=== PATIENT | male | born 1960 | race Caucasian/White ===

== ENCOUNTER 2018-08-18 12:33 | Emergency (ER) | payer MEDICARE, MEDICAID ==
[~2018-08-18] VITALS: Ht 175.3 cm; Wt 63.6 kg
[~2018-08-18 12:33] MED LIST: RISP2TAB12
[2018-08-18 13:06] LABS: BASO # 0.1 10^3/uL (0.0-0.2); BASO % 0.5 % (0.0-1.0); EOS # 0.1 10^3/uL (0.0-0.50); EOS % 0.8 % (0.0-3.0); HEMATOCRIT 41.2 % (42.0-52.0); HEMOGLOBIN 13.8 g/dl (13.5-17.5); LYMPH # 2.4 10^3/uL (1.5-4.5); LYMPH % 24.4 % (24.0-44.0); MEAN CORPUSCULAR HEMOGLOBIN 30.5 pg (27.0-33.0); MEAN CORPUSCULAR HGB CONC 33.5 g/dl (32.0-36.5); MEAN CORPUSCULAR VOLUME 90.9 fl (80.0-96.0); MONO # 0.7 10^3/uL (0.0-0.8); MONO % 7.1 % (0.0-5.0); NEUTROPHILS # 6.6 10^3/uL (1.8-7.7); NEUTROPHILS % 66.8 % (36.0-66.0); PLATELET COUNT, AUTOMATED 327 10^3/uL (150-450); RED BLOOD COUNT 4.53 10^6/uL (4.30-6.10); WHITE BLOOD COUNT 9.8 10^3/uL (4.0-10.0)
[2018-08-18 13:16] LABS: INR 0.95; PROTHROMBIN TIME 12.8 SECONDS (12.1-14.4)
[2018-08-18 13:43] LABS: ALBUMIN 4.3 GM/DL (3.2-5.2); ALT/SGPT 22 U/L (12-78); BILIRUBIN,DIRECT 0.1 MG/DL (0.0-0.2); BILIRUBIN,TOTAL 0.6 MG/DL (0.2-1.0); BLOOD UREA NITROGEN 11 MG/DL (7-18); CALCIUM LEVEL 9.1 MG/DL (8.5-10.1); CARBON DIOXIDE LEVEL 27 MEQ/L (21-32); CHLORIDE LEVEL 104 MEQ/L (98-107); CREATININE FOR GFR 0.91 MG/DL (0.70-1.30); GLOMERULAR FILTRATION RATE > 60.0 (>56); GLUCOSE, FASTING 111 MG/DL (70-100); POTASSIUM SERUM 3.8 MEQ/L (3.5-5.1); SODIUM LEVEL 138 MEQ/L (136-145); TOTAL PROTEIN 7.5 GM/DL (6.4-8.2)
[2018-08-18] MEDS ORDERED: ISOVUE-370 76% 125ML VIAL (Q9967 PER ML) As Ordered ONE (14:13)
[2018-08-18 16:00] VITALS: BP 185/88
--- NOTE | 2018-08-18 16:14 | REP ---
CT abdomen and pelvis with IV but without oral contrast: History: Abdomen pain. Constipation. CT contrast dose: 100 ml of intravenous Isovue [address] findings: Preliminary digital agriscience instructor radiograph is unremarkable. EKG monitoring electrodes are seen. The lung bases are clear on axial CT images. The liver and the spleen are normal in size and homogeneous in texture. There is a small hyper enhancing nodule in the spleen consistent with hemangioma. This measures 1.3 cm. No focal hepatic lesion is seen. No adrenal lesion is observed on either side. The kidneys enhance symmetrically are morphologically intact. Pancreas shows no abnormality. The gallbladder is small but unremarkable by CT. There is diverticulosis affecting the left colon without CT evidence of diverticulitis. Urinary bladder is unremarkable. Prostate gland is mildly prominent. Seminal vesicles are unremarkable. No abdominal wall defect is seen. The appendix is surgically absent. Small and large bowel loops are unremarkable in the abdomen and pelvis. No evidence of free air or free fluid or abnormal fluid collection. Impression: Left colonic diverticulosis. Mildly prominent prostate gland. A small hemangioma in the spleen noted incidentally. Otherwise negative CT study abdomen and pelvis. Electronically Signed by Jorge Gama MD 08/18/2018 04:29 P
== END 2018-08-18 16:02 | disposition home or self-care (01) ==
LOC: M ED 12:33
DX: K62.5 Hemorrhage of anus and rectum (principal); K59.00 Constipation, unspecified; K57.30 Diverticulosis of large intestine without perforation or abscess without bleeding; K64.9 Unspecified hemorrhoids; F99 Mental disorder, not otherwise specified; Z72.0 Tobacco use; F12.10 Cannabis abuse, uncomplicated
CPT/HCPCS: 74177; 80048; 80076; 85025; 85610; 86850; 86900; 86901; 93041; 99284; Q9967

== ENCOUNTER → 2018-09-11 | Outpatient (REF) | payer MEDICARE, MEDICAID ==
[2018-09-11 19:01] LABS: ALT/SGPT 19 U/L (12-78); BILIRUBIN,TOTAL 0.4 MG/DL (0.2-1.0); BLOOD UREA NITROGEN 12 MG/DL (7-18); CALCIUM LEVEL 8.6 MG/DL (8.5-10.1); CARBON DIOXIDE LEVEL 28 MEQ/L (21-32); CHLORIDE LEVEL 107 MEQ/L (98-107); CHOLESTEROL LEVEL 163 MG/DL (<200); CHOLESTEROL RISK RATIO 2.507 (<5); CREATININE FOR GFR 0.86 MG/DL (0.70-1.30); GLOMERULAR FILTRATION RATE > 60.0 (>56); GLUCOSE, FASTING 101 MG/DL (70-100); HDL CHOLESTEROL 65 MG/DL (>40); LDL CHOLESTEROL 85 MG/DL (<100); NON-HDL-C 98 MG/DL; POTASSIUM SERUM 4.3 MEQ/L (3.5-5.1); SODIUM LEVEL 141 MEQ/L (136-145); TOTAL PROTEIN 7.2 GM/DL (6.4-8.2); TRIGLYCERIDES LEVEL 63 MG/DL (<150)
== END ==
LOC: M SFHCCLAY 09:45
PROVIDERS: ATTEND Family Medicine
DX: Z13.220 Encounter for screening for lipoid disorders (principal); Z13.1 Encounter for screening for diabetes mellitus
CPT/HCPCS: 80053; 80061; G0463

== ENCOUNTER → 2018-09-27 | Outpatient (REF) | payer MEDICARE, MEDICAID ==
[~2018-09-27] MED LIST changes: +ATOR40TA75 PO; +FLOM0.4C39 PO; +HYDR-3363 PO
[2018-09-27 11:32] LABS: ALBUMIN 4.4 GM/DL (3.2-5.2); ALT/SGPT 17 U/L (12-78); BILIRUBIN,TOTAL 1.3 MG/DL (0.2-1.0); BLOOD UREA NITROGEN 16 MG/DL (7-18); CALCIUM LEVEL 9.3 MG/DL (8.8-10.2); CARBON DIOXIDE LEVEL 28 MEQ/L (21-32); CHLORIDE LEVEL 102 MEQ/L (98-107); CHOLESTEROL LEVEL 197 MG/DL (<200); CHOLESTEROL RISK RATIO 2.626 (<5); CREATININE FOR GFR 0.96 MG/DL (0.70-1.30); GLOMERULAR FILTRATION RATE > 60.0 (>49); GLUCOSE, FASTING 111 MG/DL (70-100); HDL CHOLESTEROL 75 MG/DL (>40); LDL CHOLESTEROL 103 MG/DL (<100); NON-HDL-C 122 MG/DL; POTASSIUM SERUM 4.3 MEQ/L (3.5-5.1); SODIUM LEVEL 137 MEQ/L (136-145); TOTAL PROTEIN 7.2 GM/DL (6.4-8.2); TRIGLYCERIDES LEVEL 95 MG/DL (<150)
== END ==
LOC: M SFHCCLAY 08:51
PROVIDERS: ATTEND Family Medicine
DX: Z13.220 Encounter for screening for lipoid disorders (principal); Z13.1 Encounter for screening for diabetes mellitus; E78.5 Hyperlipidemia, unspecified
CPT/HCPCS: 80053; 80061; G0463

== ENCOUNTER 2018-10-24 05:51 | Day surgery (SDC) | payer MEDICARE, MEDICAID ==
[~2018-10-24] VITALS: Ht 175.3 cm; Wt 64.9 kg
[2018-10-24] MEDS ORDERED: LIDOCAINE 1% MDV 20ML VIAL SQ PRN (06:00)
[2018-10-24] MEDS ORDERED: LR 1,000 ML IV SCH ×2 (06:00→12:45)
[2018-10-24] MEDS ORDERED: BUPIVACAINE LIPOSOME/PF 1.3% 20ML VIAL (13.3MG/ML)(EXPAREL)(C9290 PER1MG) As Ordered ONE (06:15)
[2018-10-24] MEDS ORDERED: BUPIVACAINE HCL 0.5% 30 ML VIAL As Ordered ONE (06:15)
[2018-10-24] MEDS ORDERED: ONDANSETRON 4MG/2ML VIAL (J2405) IV PRN (12:45)
[2018-10-24] MEDS ORDERED: PERCOCET 5MG/325MG TAB PO PRN (12:45)
[2018-10-24] MEDS ORDERED: fentaNYL 100 MCG/2 ML INJECTION (J3010) IV PRN (12:45)
[2018-10-24] MEDS ORDERED: HYDROMORPHONE HCL 0.5 MG/ 0.5 ML SYRINGE (J1170 PER 1) IV PRN (12:45)
[2018-10-24 14:30] VITALS: BP 188/99
== END 2018-10-24 14:35 | disposition home or self-care (01) ==
LOC: M SDC 05:51
PROVIDERS: ATTEND Surgery
DX: K64.2 Third degree hemorrhoids (principal); E78.5 Hyperlipidemia, unspecified; F41.9 Anxiety disorder, unspecified; F32.9 Major depressive disorder, single episode, unspecified; N40.0 Benign prostatic hyperplasia without lower urinary tract symptoms; F17.210 Nicotine dependence, cigarettes, uncomplicated; Z79.899 Other long term (current) drug therapy
CPT/HCPCS: 46260; 88304; C9290; J2405

== ENCOUNTER 2018-10-25 00:55 | Emergency (ER) | payer MEDICARE, MEDICAID ==
[~2018-10-25] VITALS: Ht 175.3 cm; Wt 63.6 kg
[2018-10-25] MEDS ORDERED: BUPIVACAINE LIPOSOME/PF 1.3% 20ML VIAL (13.3MG/ML)(EXPAREL)(C9290 PER1MG) INFIL ONE (03:00)
[2018-10-25 03:45] VITALS: BP 157/81
--- NOTE | 2018-10-25 07:37 | RO ---
DATE OF PROCEDURE: 10/25/2018 PREOPERATIVE DIAGNOSIS: Grade 3 hemorrhoids. POSTOPERATIVE DIAGNOSIS: Grade 3 hemorrhoids. PROCEDURE PERFORMED: Hemorrhoidectomy. SURGEON: Dr. Jaylen Hand GARAGE SUPERVISOR: ANESTHESIA: Spinal. INDICATIONS FOR PROCEDURE: The patient is a 58-year-old man who reports prolapsing hemorrhoids with bowel movements that must be reduced manually or by sitting on the area for a while. He is now for exam under anesthesia and hemorrhoidectomy. OPERATIVE PROCEDURE: The patient was brought to the operating room where a subarachnoid block anesthetic was placed. He was rolled into a prone position on the operating table and moved into a prone jackknife position. The buttocks were spread with tape and the perineum was prepped and draped in a sterile fashion. Digital rectal examination revealed no palpable lesions. A Santiago anal speculum was inserted. The patient was found to have actually quite large internal hemorrhoids in a right anterolateral position and in a left lateral position. There was a smaller hemorrhoidal bundle internally in an anterior position and there was a small hemorrhoid also in a posterior midline position. Initially, the right side was addressed first. A crown suture was placed at the apex of the right posterolateral hemorrhoidal bundle. The hemorrhoidal tissues were then grasped with a forceps and excised using the needle tip cautery. Care was taken to narrow the excision at the area of the dentate line and then to include some prominent hemorrhoidal vessels just distal to the dentate line as well. The edges of the mucosa were elevated and additional hemorrhoidal vessels were removed. Hemostasis was ensured with the cautery. The wound was then closed with a running locking suture of #3-0 Vicryl out to the area of the dentate line. Distal to this, the edges of tissue were approximated with interrupted simple sutures of #3-0 chromic. The left lateral hemorrhoidal bundle which was also quite large was excised in a similar fashion and also closed with running locking #3-0 Vicryl internally and #3-0 chromic from the dentate line distally. The smaller hemorrhoidal bundle at the anterior midline was then excised and also closed. All of the hemorrhoidal tissue was sent together as a single specimen. Given the extent of tissue excised, at this point, I elected not to remove the small area in the posterior midline. A mixture of Exparel and Marcaine was then infiltrated widely around the perianal area. Final inspection revealed excellent hemostasis. The patient was then rolled into a supine position on the stretcher and transported to the recovery room in stable condition. ANUM
== END 2018-10-25 03:47 | disposition home or self-care (01) ==
LOC: M ED 00:55
DX: G89.18 Other acute postprocedural pain (principal); Z98.890 Other specified postprocedural states; N40.0 Benign prostatic hyperplasia without lower urinary tract symptoms; Z72.0 Tobacco use; Z79.899 Other long term (current) drug therapy
CPT/HCPCS: 99284; C9290

== ENCOUNTER 2018-10-27 11:36 | Emergency (ER) | payer MEDICARE, MEDICAID ==
[~2018-10-27] VITALS: Ht 175.3 cm; Wt 61.0 kg
[2018-10-27] MEDS ORDERED: NS 1,000 ML IV SCH (11:39)
[2018-10-27] MEDS ORDERED: HYDR-3713 PO (11:50)
[2018-10-27 12:18] LABS: BASO # 0.1 10^3/uL (0.0-0.2); BASO % 0.5 % (0.0-1.0); EOS # 0.1 10^3/uL (0.0-0.50); EOS % 0.7 % (0.0-3.0); HEMATOCRIT 43.7 % (42.0-52.0); LYMPH # 2.2 10^3/uL (1.5-4.5); LYMPH % 15.4 % (24.0-44.0); MEAN CORPUSCULAR HEMOGLOBIN 32.1 pg (27.0-33.0); MEAN CORPUSCULAR HGB CONC 34.3 g/dl (32.0-36.5); MEAN CORPUSCULAR VOLUME 93.4 fl (80.0-96.0); MONO # 0.8 10^3/uL (0.0-0.8); MONO % 5.5 % (0.0-5.0); NEUTROPHILS # 11.2 10^3/uL (1.8-7.7); NEUTROPHILS % 77.6 % (36.0-66.0); PLATELET COUNT, AUTOMATED 318 10^3/uL (150-450); RED BLOOD COUNT 4.68 10^6/uL (4.30-6.10); WHITE BLOOD COUNT 14.5 10^3/uL (4.0-10.0)
[2018-10-27 12:31] LABS: INR 1.01; PROTHROMBIN TIME 13.4 SECONDS (12.1-14.4)
[2018-10-27 12:48] LABS: ALBUMIN 3.9 GM/DL (3.2-5.2); BILIRUBIN,DIRECT 0.1 MG/DL (0.0-0.2); BILIRUBIN,TOTAL 0.6 MG/DL (0.2-1.0); TOTAL PROTEIN 7.6 GM/DL (6.4-8.2)
--- NOTE | 2018-10-27 14:25 | REP ---
Clinical: Epigastric and abdominal pain. Technique: Upright view of the chest with supine and upright views of the abdomen and pelvis. Findings: Frontal upright view of the chest demonstrates no acute cardiopulmonary process or free air below the diaphragm to suspect pneumoperitoneum. Supine and upright views of the abdomen and pelvis demonstrate nonspecific bowel gas pattern without obstruction or perforation. No organomegaly. No abnormal calcifications. Skeletal structures normal for age. Impression: Nonspecific bowel gas pattern. Electronically Signed by Osmany Iyer MD 10/27/2018 02:17 P
[2018-10-27 16:06] VITALS: BP 146/82
[2018-10-27] MEDS ORDERED: COLA100C5 PO (16:34)
--- NOTE | 2018-10-27 22:29 | ECGEPIP ---
[facility] - ED Test Date: 2018-10-27 Pat Name: HUSAM VELARDE Department: Room: - Gender: Male Lead Front End Developer: JANETH : 1960 Requested By: Saida Mathews Order Number: [id number] Reading MD: Ivan Gerber Measurements Intervals [place] Rate: 72 P: 87 NV: 146 QRS: 70 QRSD: 84 T: 44 QT: 390 QTc: 430 Interpretive Statements SINUS RHYTHM WITH OCCASIONAL SUPRAVENTRICULAR PREMATURE COMPLEXES NO PRIORS FOR COMPARISON Electronically Signed on 10-27-2018 22:29:01 EDT by Ivan Gerber
== END 2018-10-27 17:27 | disposition home or self-care (01) ==
LOC: EDBD 11:36 → M ED 11:36
DX: G89.18 Other acute postprocedural pain (principal); N40.1 Benign prostatic hyperplasia with lower urinary tract symptoms; Z90.89 Acquired absence of other organs; F17.210 Nicotine dependence, cigarettes, uncomplicated; Z79.891 Long term (current) use of opiate analgesic; Z79.899 Other long term (current) drug therapy

== ENCOUNTER 2022-11-30 09:16 | Inpatient (IN) | payer MEDICARE, MEDICAID ==
[~2022-11-30] VITALS: Ht 175.3 cm; Wt 67.4 kg
[~2022-11-30 09:16] MED LIST changes: +COLA100C5 PO; +HYDR-3713 PO
[2022-11-30] MEDS ORDERED: MED REC IN PROGRESS XX SCH (10:15)
[2022-11-30 10:16] LABS: HEMATOCRIT 45.8 % (42.0-52.0); HEMOGLOBIN 15.7 g/dl (13.5-17.5); MEAN CORPUSCULAR HEMOGLOBIN 31.7 pg (27.0-33.0); MEAN CORPUSCULAR HGB CONC 34.3 g/dl (32.0-36.5); MEAN CORPUSCULAR VOLUME 92.3 fl (80.0-96.0); PLATELET COUNT, AUTOMATED 331 10^3/uL (150-450); RED BLOOD COUNT 4.96 10^6/uL (4.30-6.10); WHITE BLOOD COUNT 7.2 10^3/uL (4.0-10.0)
[2022-11-30] MEDS ORDERED: LORazepam 2 MG TAB PO STA (10:18)
[2022-11-30] MEDS ORDERED: HOME MED LIST COMPLETE! XX SCH (10:25)
[2022-11-30 10:33] LABS: ETHYL ALCOHOL (ETHANOL) 0.034 % (0.000-0.010)
[2022-11-30 10:34] LABS: ACETAMINOPHEN LEVEL < 2.0 UG/ML (10.0-20.0)
[2022-11-30 10:35] LABS: ALBUMIN 4.4 G/DL (3.2-5.2); ALKALINE PHOSPHATASE 62 U/L (46-116); ALT/SGPT 40 U/L (7.0-40); AST/SGOT 34 U/L (<34); BILIRUBIN,DIRECT 0.4 MG/DL (<0.4); BILIRUBIN,TOTAL 1.1 MG/DL (0.3-1.2); BLOOD UREA NITROGEN 10 MG/DL (9-23); CALCIUM LEVEL 10.6 MG/DL (8.3-10.6); CARBON DIOXIDE LEVEL 22 MMOL/L (20-31); CHLORIDE LEVEL 103 MMOL/L (98-107); CREATININE FOR GFR 0.82 MG/DL (0.70-1.30); GLOMERULAR FILTRATION RATE > 60.0 (>49); GLUCOSE, FASTING 99 MG/DL (74-106); POTASSIUM SERUM 3.8 MMOL/L (3.5-5.1); SALICYLATE LEVEL < 3.0 MG/DL (<30); SODIUM LEVEL 136 MMOL/L (136-145); TOTAL PROTEIN 7.3 G/DL (5.7-8.2)
[2022-11-30 10:37] LABS: THYROID STIMULATING HORMONE 0.796 uIU/ML (0.55-4.78)
[2022-11-30 13:21] LABS: AMPHETAMINES LEVEL URINE NEGATIVE (NEGATIVE); BARBITURATES URINE NEGATIVE (NEGATIVE); BENZODIAZEPINES URINE NEGATIVE (NEGATIVE); COCAINE METABOLITE URINE NEGATIVE (NEGATIVE); METHADONE URINE NEGATIVE (NEGATIVE); OPIATES URINE NEGATIVE (NEGATIVE); PHENCYCLIDINE URINE NEGATIVE (NEGATIVE)
[2022-11-30 13:22] LABS: CANNABINOIDS URINE POSITIVE (NEGATIVE)
[2022-11-30] MEDS ORDERED: MOM 30ML SUSPENSION UDC PO PRN (14:45)
[2022-11-30] MEDS ORDERED: ACETAMINOPHEN TAB 650MG DOSE (2X325MG) PO PRN (14:45)
[2022-11-30] MEDS ORDERED: MAALOX 30 ML SUSP *UDC PO PRN (14:45)
[2022-11-30] MEDS ORDERED: IBUPROFEN 400MG TAB PO PRN (14:45)
[2022-11-30] MEDS ORDERED: diphenhydrAMINE 25MG CAP PO PRN (14:45)
[2022-11-30] MEDS ORDERED: LORazepam 2 MG TAB PO PRN (14:45)
[2022-11-30] MEDS ORDERED: CHLORTHALIDONE 12.5MG PER 1/2 TABLET PO ONE (15:00)
[2022-11-30] MEDS: FOLIC ACID 1MG TAB PO SCH (15:03)
[2022-11-30] MEDS: MULTIVITAMINS/MINERALS THERAP 1 TAB PO SCH (15:03)
[2022-11-30] MEDS: THIAMINE 100 MG TAB PO SCH ×2 (15:03→20:51)
[2022-11-30 18:25] VITALS: BP 188/98; TEMP 97.9; O2SAT 99
[2022-11-30 18:40] VITALS: BP 188/98
[2022-11-30] MEDS ORDERED: **hydrALAZINE** 10 MG TAB PO PRN (19:15)
[2022-11-30 19:24] VITALS: BP 152/91
[2022-11-30] MEDS: traZODone 50 MG TAB PO PRN (20:51)
[2022-11-30] MEDS ORDERED: cloNIDine 0.1MG TABLET PO ONE (22:25)
[2022-12-01 05:43] VITALS: BP 170/85
[2022-12-01 06:01] VITALS: BP 136/90; TEMP 98; O2SAT 97
[2022-12-01] MEDS: NICOTINE 21MG/24HR 1 EA TRANSDERMAL TD SCH (09:00)
[2022-12-01] MEDS: MULTIVITAMINS/MINERALS THERAP 1 TAB PO SCH (09:23)
[2022-12-01] MEDS: THIAMINE 100 MG TAB PO SCH ×2 (09:23→20:41)
[2022-12-01] MEDS: FOLIC ACID 1MG TAB PO SCH (09:23)
[2022-12-01] MEDS: FLUoxetine 10 MG CAP PO SCH (09:24)
[2022-12-01] MEDS: CHLORTHALIDONE 12.5MG PER 1/2 TABLET PO SCH (09:24)
[2022-12-01 13:33] VITALS: BP 182/93
[2022-12-01 16:46] VITALS: BP 158/88; TEMP 98.2; O2SAT 99
[2022-12-01] MEDS: risperiDONE 0.5 MG TAB PO SCH (20:40)
[2022-12-01] MEDS: traZODone 50 MG TAB PO PRN (20:40)
[2022-12-01 22:30] VITALS: BP 190/110
[2022-12-01] MEDS ORDERED: amLODIPine 5 MG TAB PO ONE (22:45)
[2022-12-02 02:04] VITALS: BP 148/90
[2022-12-02 06:25] VITALS: BP 146/86; TEMP 98.1; O2SAT 98
[2022-12-02 07:54] LABS: CHOLESTEROL RISK RATIO 2.21 (<5); HDL CHOLESTEROL 80.5 MG/DL (>40); LDL CHOLESTEROL 79.1 MG/DL (<100); NON-HDL-C 97.5 MG/DL
[2022-12-02] MEDS ORDERED: PILL CUTTER 1 EACH XX PRN (08:10)
[2022-12-02] MEDS: NICOTINE 21MG/24HR 1 EA TRANSDERMAL TD SCH (09:00)
[2022-12-02] MEDS: FLUoxetine 10 MG CAP PO SCH (09:21)
[2022-12-02] MEDS: MULTIVITAMINS/MINERALS THERAP 1 TAB PO SCH (09:21)
[2022-12-02] MEDS: FOLIC ACID 1MG TAB PO SCH (09:21)
[2022-12-02] MEDS: THIAMINE 100 MG TAB PO SCH ×2 (09:21→20:43)
[2022-12-02] MEDS: CHLORTHALIDONE 12.5MG PER 1/2 TABLET PO SCH (09:21)
[2022-12-02] MEDS: NALTREXONE 50 MG TAB PO SCH (09:22)
[2022-12-02 15:23] VITALS: BP 165/87
[2022-12-02 15:24] VITALS: BP 165/87; TEMP 96.2
[2022-12-02 18:19] VITALS: BP 165/87; TEMP 96.2; O2SAT 99
[2022-12-02] MEDS: traZODone 50 MG TAB PO PRN (20:43)
[2022-12-02] MEDS: risperiDONE 0.5 MG TAB PO SCH (20:43)
[2022-12-03 05:57] VITALS: BP 162/98; TEMP 99.4; O2SAT 98
[2022-12-03] MEDS ORDERED: AMLO1TAB24 PO (08:28)
[2022-12-03] MEDS ORDERED: NICO21PAT TD (08:28)
[2022-12-03] MEDS ORDERED: TRAZ-252 PO (08:28)
[2022-12-03] MEDS ORDERED: VITMTA PO (08:28)
[2022-12-03] MEDS ORDERED: CHLO125TA PO (08:28)
[2022-12-03] MEDS ORDERED: FLUO10CA18 PO (08:28)
[2022-12-03] MEDS ORDERED: NALT50TA4 PO (08:28)
[2022-12-03] MEDS ORDERED: RISP-7 PO (08:28)
[2022-12-03] MEDS ORDERED: amLODIPine 5 MG TAB PO SCH (09:00)
[2022-12-03] MEDS: NICOTINE 21MG/24HR 1 EA TRANSDERMAL TD SCH (09:00)
[2022-12-03] MEDS ORDERED: CHLORTHALIDONE 25 MG TAB PO SCH (09:00)
[2022-12-03 09:27] VITALS: BP 160/80
[2022-12-03] MEDS: NALTREXONE 50 MG TAB PO SCH (09:29)
[2022-12-03] MEDS: MULTIVITAMINS/MINERALS THERAP 1 TAB PO SCH (09:29)
[2022-12-03] MEDS: FOLIC ACID 1MG TAB PO SCH (09:29)
[2022-12-03] MEDS: FLUoxetine 10 MG CAP PO SCH (09:29)
[2022-12-03 09:30] VITALS: BP 160/80
== END 2022-12-03 12:27 | disposition home or self-care (01) | DRG 885 ==
LOC: M ED 09:16 → M ED INP 14:45 → M PSY 18:22
PROVIDERS: ADMIT Student in an Organized Health Care Education/Training Program; ATTEND Student in an Organized Health Care Education/Training Program
DX: F33.1 Major depressive disorder, recurrent, moderate (principal); R45.851 Suicidal ideations; F10.20 Alcohol dependence, uncomplicated; F17.200 Nicotine dependence, unspecified, uncomplicated; I10 Essential (primary) hypertension